=== PATIENT | male | born 1965 | race Two or more races ===

== ENCOUNTER 2019-12-07 14:22 | Emergency (ER) | payer OTHER ==
[~2019-12-07] VITALS: Ht 165.1 cm; Wt 72.6 kg
[2019-12-07 14:36] VITALS: BP 104/74
[2019-12-07] MEDS ORDERED: Acetaminophen 500mg (ES) tab ORAL ONE (14:45)
[2019-12-07] MEDS ORDERED: Ketorolac 30mg Inj IM ONE (14:45)
[2019-12-07] MEDS ORDERED: LIDODERM700 M1 TOPIC (14:48)
[2019-12-07] MEDS ORDERED: IBUPROFEN600 M1 ORAL (14:48)
--- NOTE | 2019-12-07 14:48 | Emergency Room Report ---
History of Present Illness General Chief Complaint: Upper Extremity Injury Source: Patient Present Illness HPI 54-year-old male presents with recurrent right shoulder pain patient was lifting a crate of water bottles, he states his right shoulder was hurting afterwards, occurred 11/25/2019, he endorses right sharp pain aggravated with movement alleviated with rest severity is moderate, intermittent patient also endorses limited range of motion of the right shoulder patient was seen at [place]. Patient presents for evaluation and treatment as well as Worker's Compensation Allergies: Coded Allergies: No Known Allergies (Unverified , 12/07/19) COVID-19 Screening Contact w/high risk pt: No Experienced COVID-19 symptoms?: No COVID-19 Testing performed ENGINEERING DIRECTOR: No Patient History Past Medical History: see triage record Reviewed Nursing Documentation: PMH: Agreed; PSxH: Agreed Nursing Documentation-PMH Past Medical History: No History, Except For Hx Seizures: Yes Review of Systems All Other Systems: negative except mentioned in HPI Physical Exam Vital Signs Date Time Temp Pulse Resp B/P (MAP) Pulse Ox O2 Delivery O2 Flow Rate FiO2 12/07/19 14:26 98.4 92 19 104/74 (84) 96 Room Air General Appearance: well appearing, no apparent distress Head: normocephalic, atraumatic ENT: hearing grossly normal, normal voice Neck: full range of motion, supple Respiratory: no respiratory distress, speaking full sentences Musculoskeletal: other - Right upper extremity: Limited range of motion of the right shoulder, 2+ radial pulse, radial median ulnar nerve intact, 5-5 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, tenderness to palpation right shoulder, patient is unable to abduct the shoulder past 90 degrees Neurologic: alert, normal gait Psychiatric: mood/affect normal Skin: no rash Medical Decision Making Diagnostic Impression: Primary Impression: Rotator cuff injury Qualified Codes: S46.001A - Unspecified injury of muscle(s) and tendon(s) of the rotator cuff of right shoulder, initial encounter ER Course 54-year-old male presents with most likely with a rotator cuff injury, patient given a lidocaine patch, Decadron injection, Toradol shot, and Tylenol p.o., patient will need modified return to work additionally patient will also require referral to orthopedic as well as physical therapy. Disposition home with return precautions, x-rays negative for acute fracture dislocation Other X-Ray Diagnostic Results Other X-Ray Diagnostic Results : X-Ray ordered: Right shoulder # of Views/Limited Vs Complete: 3 View Indication: Pain EP Interpretation: Yes Interpretation: no dislocation, no fractures Impression: No acute disease Electronically Signed by: Neo De La Fuente MD Last Vital Signs Date Time Temp Pulse Resp B/P (MAP) Pulse Ox O2 Delivery O2 Flow Rate FiO2 12/07/19 14:36 98.4 19 104/74 96 Room Air 12/07/19 14:26 92 Disposition: HOME, SELF-CARE Condition: Stable Scripts Lidocaine Patch* (Lidoderm Patch*) 1 Each Adh..patch 1 PATCH TOPIC DAILY, #7 PATCH 0 Refills Patch(es) may remain in place for up to 12 hours in any 24-hour period. Prov: Neo De La Fuente MD 12/07/19 Ibuprofen* (MOTRIN*) 600 Mg Tablet 600 MG ORAL Q6H PRN for For Pain, #30 TAB 0 Refills Prov: Neo De La Fuente MD 12/07/19 Referrals: Isai Casey MD [facility] Patient Instructions: Rotator Cuff Injury, Rotator Cuff Tendinitis Additional Instructions: The patient was provided with discharge instructions, notified to follow-up with a primary care doctor and or specialist in the next 24-48 hours, and to return to the ED if they have worsening of their symptoms. Please note that this report is being documented using [employer] technology. This can lead to erroneous entry secondary to incorrect interpretation by the dictating instrument. Neo De La Fuente MD Dec 07, 2019 14:48
[2019-12-07 15:02] VITALS: BP 104/74
--- NOTE | 2019-12-07 16:48 | Diagnostic Imaging Report ---
Indication: Shoulder pain Technique: XRAY Shoulder Compl R Comparison: None Findings: Bone mineralization within normal limits. No acute fracture or dislocation is identified. Amorphous foci of mineralization projecting adjacent to the humeral head suggesting calcific tendinitis. Imaged portions of the right lung grossly clear. There are degenerative changes in the spine. No radiopaque foreign body. IMPRESSION: Findings suggesting calcific tendinitis of the right shoulder. Correlate clinically. No acute fracture or dislocation.
== END 2019-12-07 15:03 | disposition home or self-care (01) ==
LOC: EMR 14:56
DX: S46.001A Unspecified injury of muscle(s) and tendon(s) of the rotator cuff of right shoulder, initial encounter (principal); X50.0XXA Overexertion from strenuous movement or load, initial encounter; Y92.9 Unspecified place or not applicable
CPT/HCPCS: 73030; 96372; 99283; J1100; J1885